=== PATIENT | female | born 2005 | race Caucasian/White ===

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

== ENCOUNTER 2025-03-19 09:38 | Emergency (ER) | payer OTHER ==
[~2025-03-19] VITALS: Ht 162.6 cm; Wt 63.5 kg
[2025-03-19 12:02] VITALS: BP 122/70; PULSE 76; RESP 18; O2SAT 98
[2025-03-19] MEDS ORDERED: PRED-554 PO (12:07)
[2025-03-19] MEDS ORDERED: DIPH25CA85 PO (12:08)
== END 2025-03-19 12:30 | disposition home or self-care (01) ==
LOC: EMS 09:38
DX: L25.9 Unspecified contact dermatitis, unspecified cause (principal); Z79.52 Long term (current) use of systemic steroids; Z91.013 Allergy to seafood
CPT/HCPCS: 99283; J7512